=== PATIENT | female | born 1960 | race Caucasian/White ===

== ENCOUNTER 2022-05-06 13:17 | Emergency (ER) | payer MEDICAID ==
[~2022-05-06] VITALS: Ht 165.1 cm; Wt 68.0 kg
[2022-05-06] MEDS ORDERED: IBUPROFEN 600MG TABLET PO STA (13:50)
[2022-05-06] MEDS ORDERED: IBUPROFEN 600MG TABLET PO NR (16:00)
[2022-05-06 17:14] LABS: BASOPHILS % 0.3 % (0.0-2.0); EOSINOPHILS % 0.5 % (0.0-5.0); HEMATOCRIT. 39.8 % (36.0-48.0); HEMOGLOBIN. 13.1 g/dL (12.0-16.0); LYMPHOCYTES % 10.9 % (20.0-50.0); MEAN CORPUSCULAR HEMOGLOBIN 29.5 pg (28.0-32.0); MEAN CORPUSCULAR VOLUME 89.6 fL (81.0-99.0); MEAN PLATELET VOLUME 8.2 fl (7.4-10.4); MONOCYTES % 4.4 % (2.0-8.0); NEUTROPHILS % 83.9 % (40.0-76.0); PLATELET 305 x1000/uL (130-400); RED BLOOD CELL COUNT 4.44 mill/uL (4.2-5.4); RED CELL DISTRIBUTION WIDTH 15.7 % (11.6-14.6)
[2022-05-06 17:24] LABS: CHLORIDE 104 mEq/L (98-107)
[2022-05-06 17:33] LABS: ETHANOL BLOOD < 10 mg/dL
[2022-05-06] MEDS ORDERED: KETOROLAC 60MG/2ML VIAL IM ONE (18:00)
[2022-05-06 18:28] VITALS: BP 117/64
[2022-05-06] MEDS ORDERED: IBUP-2029 MT (18:29)
[2022-05-06] MEDS ORDERED: CYCL10TA21 MT (18:29)
[2022-05-06] MEDS ORDERED: ACETAMINOPHEN 325MG TABLET PO ONE (18:30)
== END 2022-05-06 20:48 | disposition home or self-care (01) ==
LOC: ER 13:17
DX: M54.30 Sciatica, unspecified side (principal); E11.9 Type 2 diabetes mellitus without complications; I10 Essential (primary) hypertension; Z91.018 Allergy to other foods
CPT/HCPCS: 36415; 71045; 80053; 80320; 84484; 85025; 93005; 99285; G0480

== ENCOUNTER 2024-03-31 15:28 | Emergency (ER) | payer MEDICAID, MEDICARE ==
[~2024-03-31] VITALS: Ht 167.6 cm; Wt 104.0 kg
[~2024-03-31 15:28] MED LIST: CYCL10TA21 MT; IBUP-2029 MT
[2024-03-31 15:32] VITALS: O2SAT 99
[2024-03-31] MEDS ORDERED: ONDANSETRON 4MG ODT PO ONE (16:00)
[2024-03-31] MEDS ORDERED: MECLIZINE 25MG TABLET PO ONE (16:00)
[2024-03-31 16:34] LABS: BASOPHILS % 0.9 % (0.0-2.0); EOSINOPHILS % 2.2 % (0.0-5.0); HEMATOCRIT. 37.7 % (36.0-48.0); HEMOGLOBIN. 12.2 g/dL (12.0-16.0); LYMPHOCYTES % 22.9 % (20.0-50.0); MEAN CORPUSCULAR HEMOGLOBIN 28.3 pg (28.0-32.0); MEAN CORPUSCULAR HGB CONC 32.3 g/dL (31.0-37.0); MEAN CORPUSCULAR VOLUME 87.6 fL (81.0-99.0); MEAN PLATELET VOLUME 8.6 fl (7.4-10.4); MONOCYTES % 4.4 % (2.0-8.0); NEUTROPHILS % 69.6 % (40.0-76.0); PLATELET 380 x1000/uL (130-400); RED BLOOD CELL COUNT 4.31 mill/uL (4.2-5.4); RED CELL DISTRIBUTION WIDTH 19.5 % (11.6-14.6); WHITE BLOOD COUNT 9.3 x1000/uL (4.5-11.0)
[2024-03-31 16:42] LABS: CHLORIDE 107 mEq/L (98-107); POTASSIUM 4.2 mEq/L (3.5-5.1); SODIUM 142 mEq/L (136-145)
[2024-03-31 16:43] LABS: CALCIUM 9.8 mg/dL (8.7-10.4); CARBON DIOXIDE 28 mEq/L (21-32)
[2024-03-31 16:48] LABS: CREATININE 1.1 mg/dL (0.6-1.0); GLUCOSE 142 mg/dL (70-105); UREA NITROGEN BLOOD 18 mg/dL (9-23)
[2024-03-31 16:52] LABS: TROPONIN I HIGH SENSITIVITY < 4 ng/L (3.0-34)
[2024-03-31] MEDS ORDERED: MECL-299 MT (21:16)
[2024-03-31 21:46] VITALS: BP 138/89; PULSE 81; RESP 16; TEMP 36.89184; O2SAT 99
[2024-03-31] MEDS: MECLIZINE 25MG TABLET PO NR (21:52)
[2024-03-31] MEDS: ONDANSETRON 4MG ODT PO NR (21:52)
== END 2024-03-31 21:52 | disposition home or self-care (01) ==
LOC: ER 15:28
DX: R55 Syncope and collapse (principal); R42 Dizziness and giddiness; M19.90 Unspecified osteoarthritis, unspecified site; E11.9 Type 2 diabetes mellitus without complications
CPT/HCPCS: 99285; 70450; 71045; 80048; 83880; 85025; 84484; 36415; 93005; J8597; Q0162